=== PATIENT | male | born 1980 | race Hispanic/Latino ===

== ENCOUNTER 2021-06-26 11:41 | Emergency (ER) | payer BC, SELFPAY ==
[2021-06-26 12:41] VITALS: BP 186/117; PULSE 102; RESP 16; TEMP 36.2; O2SAT 99; BMI 34.4
--- NOTE | 2021-06-26 13:50 | DI.RAD.S_ITS ---
PROCEDURE: XR SACRUM COCCYX MIN 2V INDICATIONS: coccyx pain TECHNIQUE: 3 views of the sacrum and coccyx acquired. COMPARISON: None. FINDINGS: Bones: No fractures or dislocations. No suspicious bony lesions. In this patient with this given history, scrutiny is given to the coccyx. No coccyx abnormality can be seen. Soft tissues: Visualized bowel gas pattern is normal. No suspicious soft tissue densities. IMPRESSION: No abnormality is seen by plain film. Dictated by: Delon Chávez M.D. on 06/26/2021 at 13:36 Approved by: Delon Chávez M.D. on 06/26/2021 at 13:36
--- NOTE | 2021-06-26 15:50 | PC.NURSE ---
Pt fell on the ice on his deck injuring his coccyx. Did not hit head, no LOC, not on thinners. Able to ambulate
--- NOTE | 2021-06-26 16:29 | ED_ITS ---
HPI - Extremity Injury (Lower) <LEIGH ANN Dotson - Last Filed: 06/26/21 16:35> General Chief Complaint: Extremity Injury, Lower Stated Complaint: Fell on ice, pain in tailbone Time Seen by Provider: 06/26/21 13:50 Source: patient Mode of arrival: Ambulatory History of Present Illness HPI Narrative: 41-year-old male presents to the emergency department complaining of tailbone pain after he slipped on ice 4 days ago and landed on his on the deck. Patient reports he was concerned about a dislocation or fracture in states he has had a tailbone fracture in the past. Patient denies any pain with bowel movements, denies any blood in his stool, denies any need for pain medication at this time, endorses pain with bending all the way over or with sitting. Patient endorses that he has been taking ibuprofen for this to home in this has been helpful. Related Data Allergies Allergy/AdvReac Type Severity Reaction Status Date / Time No Known Drug Allergies Allergy Verified 06/26/21 12:45 Review of Systems <LEIGH ANN Dotson - Last Filed: 06/26/21 16:35> Review of Systems Narrative: General: denies fever, chills Head/Neck: denies headache, neck pain Eyes: denies visual changes, eye pain Cardio: denies chest pain, palpitations Respiratory: denies shortness of breath, cough GI: denies abdominal pain, nausea, vomiting, or diarrhea : denies dysuria, hematuria MSK: denies joint pain, muscle weakness Skin: denies rash, itching Neuro: denies numbness, tingling Patient History <LEIGH ANN Dotson - Last Filed: 06/26/21 16:35> Social History Smoking Status: Former smoker Smoking Status: Former smoker alcohol intake frequency: 0-2 drinks per day Substance Use Type: does not use Exam <LEIGH ANN Dotson - Last Filed: 06/26/21 16:35> Narrative Exam Narrative: Independently reviewed vitals signs and nursing notes. General: Awake, alert, nontoxic, no cardiorespiratory distress Head/Neck: Atraumatic, neck full range of motion Eyes: EOMI, conjunctiva normal Nose: nares patent, no rhinorrhea Respiratory: respirations unlabored without wheezing, stridor, or rales. No retractions. GI: Abdomen soft, nontender MSK: Moves all extremities, neurovascularly intact, no hematoma, no lumbar or sacral tenderness to palpation Skin: Normal capillary refill, no rash Neuro: Normal speech and cognition, normal gait Initial Vital Signs Initial Vital Signs: Vital Signs Temperature 97.2 F L 06/26/21 12:41 Pulse Rate 102 H 06/26/21 12:41 Respiratory Rate 16 06/26/21 12:41 Blood Pressure 186/117 H 06/26/21 12:41 Pulse Oximetry 99 06/26/21 12:41 <Keyanna Sweeney MD - Last Filed: 06/26/21 19:02> Initial Vital Signs Initial Vital Signs: Vital Signs Temperature 97.2 F L 06/26/21 12:41 Pulse Rate 102 H 06/26/21 12:41 Respiratory Rate 16 06/26/21 12:41 Blood Pressure 186/117 H 06/26/21 12:41 Pulse Oximetry 99 06/26/21 12:41 Course <LEIGH ANN Dotson - Last Filed: 06/26/21 16:35> Orders Ordered: ED Orders 06/26/21 13:50 XR sacrum coccyx min 2V Stat Vital Signs Vital signs: Vital Signs - 8 hr 06/26/21 12:41 Temperature 97.2 F L Pulse Rate 102 H Respiratory Rate 16 Blood Pressure 186/117 H Pulse Oximetry 99 <Keyanna Sweeney MD - Last Filed: 06/26/21 19:02> Orders Ordered: ED Orders 06/26/21 13:50 XR sacrum coccyx min 2V Stat Vital Signs Vital signs: Vital Signs - 8 hr 06/26/21 12:41 Temperature 97.2 F L Pulse Rate 102 H Respiratory Rate 16 Blood Pressure 186/117 H Pulse Oximetry 99 MDM - Extremity Injury (Lower) <LEIGH ANN Dotson - Last Filed: 06/26/21 16:35> Imaging Data Extremity x-ray #1: Radiologist's Impression: PROCEDURE:? XR SACRUM COCCYX MIN 2V ? INDICATIONS:? coccyx pain ? TECHNIQUE:? 3 views of the sacrum and coccyx acquired.? ? COMPARISON:? None. ? FINDINGS:? ? Bones:? No fractures or dislocations.? No suspicious bony lesions.? In this patient with this given history, scrutiny is given to the coccyx.? No coccyx abnormality can be seen. ? Soft tissues:? Visualized bowel gas pattern is normal.? No suspicious soft tissue densities.? IMPRESSION:? No abnormality is seen by plain film. ? ? Dictated by: Delon Chávez M.D. on 06/26/2021 at 13:36 ? ? Approved by: Delon Chávez M.D. on 06/26/2021 at 13:36 ? MDM Narrative Medical decision making narrative: 41-year-old male presents emergency department for coccygeal pain after he slipped and fell 4 days ago landing on his coccyx. Patient was requesting x-ray for fear of dislocation and avascular necrosis. Patient has a prior history of fracture in his coccyx. Patient does not have any fractures on x-ray or osseous abnormality, patient denies any limitations to his activities of daily life, denies any pain with bowel movements, is tolerating his pain with ibuprofen. He understands to return to the emergency department for any new or worsening symptoms. Patient is appropriate and amenable to discharge home. Vital signs are stable on repeat examination is unremarkable. Patient has been informed of results. Patient has been given strict return to ER precautions for any new or worsening symptoms. Patient understands to follow up closely with outpatient providers as instructed. Patient understands plan and agrees to discharge home. All questions and concerns answered at this time. Discharge Plan Departure Patient Disposition: Home Clinical Impression: Fall, Coccygeal pain Instructions: DI for Coccyx Fracture Activity Restrictions/Additional Instructions: Your x-ray was negative for fracture of her tailbone. I have included instructions for because it may be helpful because it is the same kind of pain. Use ibuprofen or Tylenol as needed for your pain. Avoid things that make it painful, and hopefully will get better soon. I am glad it is not fractured or dislocated. Wishing you the best. *What to do: *Please continue to take your regular medications as directed. [ ] New medication prescriptions sent to your pharmacy: [ ] [ ] New medication written as a paper prescription [x ] No new medications given *Please follow up with your primary care provider in 2-3 days, call for an appointment. Let them know you were seen in the Emergency Department and that we ask that you be seen in follow up. We will electronically transmit a record of today's note if your PCP is in our system *If you do not have a primary care provider please contact the [facility] Resource line at [phone]. They will ask some questions about your medical history and help get you set up with a doctor in the community. *Return to Emergency Department if you should have any new, worsening or concerning symptoms, such as [fever greater than 101F, chills, worsening pain, persistent vomiting or other bothersome symptoms] <Keyanna Sweeney MD - Last Filed: 06/26/21 19:02> Cosign ED Attending Cosignature Attestation: I was immediately available in the department for consultation throughout this patient's visit. I agree with documentation as above. Keyanna Sweeney MD
== END 2021-06-26 16:32 | disposition home or self-care (01) ==
PROVIDERS: Emergency Provider Nurse Practitioner Critical Care Medicine
DX: M53.3 Sacrococcygeal disorders, not elsewhere classified (principal); Z87.891 Personal history of nicotine dependence; Z87.81 Personal history of (healed) traumatic fracture; W00.0XXA Fall on same level due to ice and snow, initial encounter
CPT/HCPCS: 72220; 99281; 99283

== ENCOUNTER 2021-09-30 09:48 | Emergency (ER) | payer BC, SELFPAY ==
--- NOTE | 2021-09-30 10:03 | DI.RAD.S_ITS ---
PROCEDURE: XR FOOT RT MIN 3V INDICATIONS: pain, injury, bruising aft base of 4th toe TECHNIQUE: 3 views of the foot were acquired. COMPARISON: None. FINDINGS: Bones: No displaced fractures of the 4th toe or the 4th metatarsal can be seen. No fractures or dislocations are seen elsewhere. No suspicious bony lesions. Incidental note is made of an accessory ossicle, an os tibiale externum. Soft tissues: No tibiotalar joint effusion. Achilles tendon appears normal. IMPRESSION: Negative for 4th toe fracture. No significant abnormality seen elsewhere. Dictated by: Delon Chávez M.D. on 09/30/2021 at 9:31 Approved by: Delon Chávez M.D. on 09/30/2021 at 9:32
[2021-09-30 10:10] VITALS: BP 204/128; PULSE 119; RESP 18; TEMP 36.6; O2SAT 97; BMI 31.5
--- NOTE | 2021-09-30 10:20 | ED_ITS ---
HPI - Extremity Injury (Lower) General Chief Complaint: Wound/Laceration Stated Complaint: Lac between toes. Thinks infection. Pain up to kne Time Seen by Provider: 09/30/21 09:56 Source: patient and family Mode of arrival: Family Vehicle History of Present Illness HPI Narrative: 41M former smoker presents with a chief complaint of an injury to his right foot last Friday. He states he dropped a heavy object on his foot and cause pain but he did not necessarily think too much of it. Over the course of the week he started noticing pain in between his toes of his right foot and eventually looked at this morning and noted some bruising and what looks like a small skin tear. He has pain with ambulation and improvement with rest. He denies any systemic findings such as fever, chills nor nausea or vomiting. He is not dizzy nor weak or lightheaded. He denies any blurred vision, trouble speech or extremity numbness, tingling or weakness. He denies any chest pain or shortness of breath Related Data Previous Rx's Medication Instructions Recorded amlodipine 5 mg tablet 5 mg PO DAILY #30 tab 09/30/21 doxycycline hyclate 100 mg tablet 100 mg PO BID #20 tab 09/30/21 hydrocodone 5 mg-acetaminophen 325 1 tab PO Q4-6H PRN #10 tab 09/30/21 mg tablet Allergies Allergy/AdvReac Type Severity Reaction Status Date / Time No Known Drug Allergies Allergy Verified 09/30/21 10:09 Review of Systems Review of Systems Narrative: GENERAL: Denies chills, fatigue, malaise, fever, sweats. HEENT: Denies sinus pain, ear pain, sore throat, difficulty swallowing, dizziness. RESPIRATORY: Denies dyspnea, cough, wheezing, hemoptysis, sputum. CARDIOVASCULAR: Denies chest pain, palpitations, orthopnea, edema, GASTROINTESTINAL: Denies nausea, vomiting, abdominal pain, diarrhea, constipation, melena. : Denies dysuria, frequency, incontinence, hematuria, urinary retention. MUSCULOSKELETAL: See HPI SKIN: See HPI NEUROLOGIC: Denies weakness, headache, numbness, change in speech, confusion, seizures, incoordination. PSYCHIATRIC: No concerning psychosocial issues. 12 point review of systems is negative except for those stated above Patient History Social History Smoking Status: Former smoker Smoking Status: Former smoker alcohol intake frequency: 3 or more drinks per day Alcohol type: beer and hard liquor Substance Use Type: does not use Exam Narrative Exam Narrative: GENERAL: [41] year old patient appears stated age. Well-developed patient, in mild distress. HEAD: Atraumatic. Normocephalic. EYES: Pupils equal round and reactive. Extraocular motions intact. No scleral icterus. No injection or drainage. ENT: Nose without bleeding, purulent drainage. Throat without erythema, tonsillar hypertrophy or exudate. Airway patent. NECK: Trachea midline. Non tender CARDIOVASCULAR: Regular rate and rhythm without murmurs, gallops, or rubs. RESPIRATORY: Clear to auscultation. Breath sounds equal bilaterally. No wheezes, rales, or rhonchi. GASTROINTESTINAL: Abdomen soft, non-tender, nondistended. EXTREMITIES: Ecchymosis on dorsum of foot at base of 4th toe with minimal surr ounding erythema, no obvious lymphangitis or extremity swelling. Small break in the skin in the 4th toe space, no active bleeding or drainage, up to repair BACK: Nontender without deformity or crepitance. No flank tenderness. NEURO: AOx3. SKIN: No rash or erythema of visible areas Initial Vital Signs Initial Vital Signs: Vital Signs Temperature 97.8 F 09/30/21 10:10 Pulse Rate 119 H 09/30/21 10:10 Respiratory Rate 18 09/30/21 10:10 Blood Pressure 204/128 H 09/30/21 10:10 Pulse Oximetry 97 09/30/21 10:10 Procedures Orthopedic Splinting/Casting Injury #1: Side: right Lower Extremity Injury Location: foot Lower Extremity Immobilizer: post-op shoe Post splinting neuro exam: intact Post splinting vascular exam: intact Placed by: Nursing Course Orders Ordered: Discontinued Medications Hydrocodone Bitart/Acetaminophen (Hydrocodone/Acet 5/325 Tablet) 1 tab PO NOW ONE Stop: 09/30/21 10:55 Last Admin: 09/30/21 10:57 Dose: 1 tab Documented by: RYAN Amlodipine Besylate (Amlodipine 5 Mg Tablet) 5 mg PO NOW ONE Stop: 09/30/21 10:37 Last Admin: 09/30/21 10:58 Dose: 5 mg Documented by: RYAN Doxycycline Hyclate (Doxycycline Hyclate 100 Mg Tablet) 100 mg PO NOW ONE Stop: 09/30/21 10:37 Last Admin: 09/30/21 10:58 Dose: 100 mg Documented by: RYAN Vital Signs Vital signs: Vital Signs - 8 hr 09/30/21 10:10 Temperature 97.8 F Pulse Rate 119 H Respiratory Rate 18 Blood Pressure 204/128 H Pulse Oximetry 97 MDM - Extremity Injury (Lower) Imaging Data Extremity x-ray #1: Radiologist's Impression: Launch?[address] [address] XRay Report Signed Patient: Thomas Parr MR#: [id number] : 1980 Acct:[id number] Age/Sex: 41 / M Date of Service: 09/30/21 Loc: ED Accession Number: [id number] ?? Procedure: XR foot RT min 3V Ordering Provider: Enzo Ty D.O. PROCEDURE:? XR FOOT RT MIN 3V ? INDICATIONS:? pain, injury, bruising aft base of 4th toe ? TECHNIQUE:? 3 views of the foot were acquired.? ? COMPARISON:? None. ? FINDINGS:? ? Bones:? No displaced fractures of the 4th toe or the 4th metatarsal can be seen.? No fractures or dislocations are seen elsewhere.? No suspicious bony lesions.? Incidental note is made of an accessory ossicle, an os tibiale externum. ? Soft tissues:? No tibiotalar joint effusion.? Achilles tendon appears normal.? ? ? IMPRESSION:? Negative for 4th toe fracture. ? No significant abnormality seen elsewhere. ? ? Dictated by: Delon Chávez M.D. on 09/30/2021 at 9:31 ? ? Approved by: Delon Chávez M.D. on 09/30/2021 at 9:32 ? [facility] Narrative Medical decision making narrative: Patient has reassuring history and physical exam. His blood pressure is elevated but he has no symptoms such as blurred vision, trouble with speech, chest pain, shortness of breath or belly pain to suggest symptoms relating to blood pressure. X-rays reassuring and notes no fracture or foreign body. There is a small skin tear, pain is likely due to mild infection. No repair indicated. Return precautions given, initial prescription for blood pressure medications, antibiotics and pain med sent to pharmacy of choice. Discharge Plan Departure Patient Disposition: Home Clinical Impression: Laceration, Cellulitis of foot Instructions: Essential Hypertension, DI for Wound Infection, DI for Minor Laceration Activity Restrictions/Additional Instructions: *You have been diagnosed with [Foot wound with infection. Physical exam and x- rays are very reassuring and there is no evidence of fracture, dislocation or foreign body *What to do: *Please continue to take your regular medications as directed. [x] New medication prescriptions sent to your pharmacy: [ [facility]] [ ] New medication written as a paper prescription [ ] No new medications given *Please follow up with your primary care provider in 2-3 days, call for an appointment. Let them know you were seen in the Emergency Department and that we ask that you be seen in follow up. We will electronically transmit a record of today's note if your PCP is in our system *If you do not have a primary care provider please contact the [facility] Resource line at [phone]. They will ask some questions about your medical history and help get you set up with a doctor in the community. *Return to Emergency Department if you should have any new, worsening or concerning symptoms, such as [fever greater than 101 F, shaking chills, worsening pain, persistent vomiting or other bothersome symptoms] Prescriptions: New doxycycline hyclate 100 mg tablet 100 mg PO BID Qty: 20 0RF hydrocodone-acetaminophen 5-325 mg tablet 1 tab PO Q4-6H PRN (Reason: pain) Qty: 10 0RF amlodipine 5 mg tablet 5 mg PO DAILY Qty: 30 0RF Stand Alone Forms: Work Release Note
[2021-09-30] MEDS: HYDROCODONE/ACET 5/325 TABLET 1 TAB PO (10:57)
[2021-09-30] MEDS: DOXYCYCLINE HYCLATE 100 MG TABLET PO (10:58)
[2021-09-30] MEDS: AMLODIPINE 5 MG TABLET PO (10:58)
[2021-09-30 11:09] VITALS: BP 185/126; PULSE 95; RESP 12; O2SAT 97
== END 2021-09-30 11:40 | disposition home or self-care (01) ==
PROVIDERS: Emergency Provider Emergency Medicine
DX: S91.114A Laceration without foreign body of right lesser toe(s) without damage to nail, initial encounter (principal); L03.115 Cellulitis of right lower limb; W20.8XXA Other cause of strike by thrown, projected or falling object, initial encounter
CPT/HCPCS: 73630; 99283